=== PATIENT | female | born 1985 | race Two or more races ===

== ENCOUNTER 2016-03-28 22:06 | Observation (INO) | payer OTHER ==
[2015-10-05 11:11] VITALS: BP 99/62
[~2016-03-28 22:06] MED LIST: PREN1TAB27 PO; PROC10VI PO
[2016-03-28] MEDS ORDERED: IV RINGERS,LACTATED 1000ML 1,000 ML IV SCH (22:30)
[2016-03-28 23:54] LABS: BILIRUBIN,URINE NEGATIVE (NEG); GLUCOSE,URINE NEGATIVE (NEG); NITRITE,URINE NEGATIVE (NEG); PROTEIN,URINE NEGATIVE (NEG-TRACE); UROBILINOGEN,URINE 0.2 mg/dL (0.2 mg/dL)
[2016-03-29 00:08] LABS: BACTERIA,URINE FEW /HPF (0-FEW); RBC,URINE OCC /HPF (0-2); SQUAMOUS EPITHELIAL CELL,UR FEW /LPF; WBC,URINE OCC /HPF (0-4)
== END 2016-03-29 00:37 | disposition home or self-care (01) ==
LOC: 3 SO LND 22:06
PROVIDERS: ADMIT Obstetrics & Gynecology; ATTEND Obstetrics & Gynecology
DX: O62.9 Abnormality of forces of labor, unspecified (principal); O26.893 Other specified pregnancy related conditions, third trimester; N89.8 Other specified noninflammatory disorders of vagina; Z3A.38 38 weeks gestation of pregnancy
CPT/HCPCS: 81001; G0378; G0379

== ENCOUNTER 2016-04-02 03:35 | Inpatient (IN) | payer OTHER ==
[~2016-04-02] VITALS: Ht 162.6 cm; Wt 71.2 kg
[2016-04-02] MEDS ORDERED: IV RINGERS,LACTATED 1000ML 1,000 ML IV SCH (03:57)
[2016-04-02] MEDS ORDERED: ONDANSETRON PF 4 MG/2 ML VIAL. IV PRN (04:00)
[2016-04-02] MEDS ORDERED: 0.9 % SODIUM CHLORIDE 10 ML DISP.SYRIN. IV PRN ×2 (04:00→06:15)
[2016-04-02] MEDS ORDERED: LIDOCAINE 1% PF 30 ML VIAL. INJ PRN (04:00)
[2016-04-02] MEDS ORDERED: TERBUTALINE 1 MG/ML VIAL. SQ PRN (04:00)
[2016-04-02] MEDS ORDERED: IBUPROFEN 600 MG TABLET. PO PRN (04:00)
[2016-04-02] MEDS ORDERED: OXYTOCIN 30 UNIT/500 ML PREMIX 500 ML IV PRN ×2 (04:00→06:15)
[2016-04-02] MEDS ORDERED: FENTANYL PF 100 MCG/2 ML VIAL. IV PRN (04:00)
[2016-04-02 04:12] VITALS: BP 112/74
--- NOTE | 2016-04-02 04:23 | PDOC1 ---
OB - History Hx of Present Care: Good Care Ultrasounds: Normal mid trimester US Obstetrical Complications: None Medical Complications: None Past Family/Social History * Past Medical, Surgical, Family and Obstetric Histories reviewed from chart. Rubella: Immune RPR/VDRL: Negative GBS Status: Negative HBsAG: Negative OB - Chief Complaint & HPI Date of Admission: Date of Admission: Apr 02, 2016 at 03:35 Chief Complaint/History : 3 Para: 1 EGA: 38 Reason for admission: active labor, rupture of membranes Admission Nurse Assessment Rev: Yes Problems: OB - Admission Exam Physical Exam Vitals: VS - Last 72 Hours, by Label Date Time Temp Pulse Resp B/P Pulse Ox O2 Delivery O2 Flow Rate FiO2 04/02/16 04:12 98.6 98 20 112/74 Room Air 98.6 HEENT: Normal Heart: Regular Rate Lungs: Clear, Equal Abdomen: Gravid, Non tender, Soft Extremities: Edema Reflexes: Normal Cervical Dilatation: 8cm Effacement: 100% Station: 0 Membranes: Ruptured Amniotic Fluid: Thin Meconium Heart Rate: Normal Accelerations: Accelerations Present Decelerations: No decelerations Short Term Variability: Present Contractions on Admission: < 5 Minutes Apart Intensity: Firm Text A: 38 wks IUP SROM P: Admit for labor management. MARLEY ASCENCIO Jr, MD Apr 02, 2016 04:22
[2016-04-02 04:40] LABS: HEMOGLOBIN 12.6 g/dL (12.0-15.5); RED BLOOD COUNT 4.5 x10^6/uL (3.50-5.40); WHITE BLOOD COUNT 10.1 x10^3/uL (4.0-11.0)
--- NOTE | 2016-04-02 06:06 | PDOC ---
VAGINAL DELIVERY DATE DATE: 04/02/16 TIME: 06:04 : 3 Para: 2 EGA: 38 VAGINAL DELIVERY: VTX VACCUM ASSISTED: No PLACENTA: Spontaneous 7/9 SEX: Male WEIGHT Weight [pending ] Nuchal Cord: No Amniotic Fluid: Thin Meconium PAIN: Natural EPISIOTOMY: No EXTENSION: No EBL 400 ml COMPLICATIONS none CONDITION pt. stable Signs of Intrauterine Infectio: None Shoulder Dystocia: No Problems: MARLEY ASCENCIO Jr, MD Apr 02, 2016 06:06
[2016-04-02] MEDS ORDERED: MAG HYDROX/ALUMINUM HYDROX/SMC 30 ML ORAL.SUSP PO PRN (06:15)
[2016-04-02] MEDS ORDERED: MAGNESIUM HYDROXIDE 2,400 MG/30 ML ORAL.SUSP. PO PRN (06:15)
[2016-04-02] MEDS ORDERED: IBUPROFEN 800 MG TABLET. PO PRN (06:15)
[2016-04-02] MEDS ORDERED: PHENYLEPH/MINERAL OIL/PETROLAT RECTAL OINTMENT 28GM TUBE. RC PRN (06:15)
[2016-04-02] MEDS ORDERED: OXYCODONE/APAP 5/325 TABLET. PO PRN (06:15)
[2016-04-02] MEDS ORDERED: DOCUSATE SODIUM 100 MG CAPSULE PO PRN (06:15)
[2016-04-02] MEDS ORDERED: DIPHENHYDRAMINE HCL 25 MG CAPSULE PO PRN (06:15)
[2016-04-02] MEDS ORDERED: BENZOCAINE 20% TOPICAL AEROSOL SPRAY 57GM CAN. TP PRN (06:15)
[2016-04-02] MEDS ORDERED: ACETAMINOPHEN 325 MG TABLET. PO PRN (06:15)
[2016-04-02] MEDS ORDERED: SIMETHICONE 80 MG TAB.CHEW PO PRN (06:15)
[2016-04-02] MEDS ORDERED: HYDROCORTISONE 1% TOPICAL OINTMENT 30GM TUBE. TP PRN (06:15)
[2016-04-02] MEDS ORDERED: MMR per PROTOCOL. MC PRN (06:15)
[2016-04-02] MEDS ORDERED: ZOLPIDEM 5 MG TABLET. PO PRN (06:15)
[2016-04-02 09:15] VITALS: BP 112/74
[2016-04-02 14:00] VITALS: BP 121/74
[2016-04-03] MEDS ORDERED: FERROUS SULFATE 325 MG TABLET PO SCH (08:00)
== END 2016-04-02 14:04 | disposition home or self-care (01) | DRG 775 ==
LOC: OBSVTOIN 03:35 → 3 SO LND 03:35 → 3 NORTH 09:38
PROVIDERS: ADMIT Obstetrics & Gynecology; ATTEND Obstetrics & Gynecology
PROC: 10E0XZZ Delivery of Products of Conception, External Approach (ICD-10-PCS; principal; 2016-04-02)
DX: O77.0 Labor and delivery complicated by meconium in amniotic fluid (principal); Z3A.38 38 weeks gestation of pregnancy; Z37.0 Single live birth
CPT/HCPCS: 36415; 85027; 86593; 86850; 86900; 86901; G0378; J2590; J3010; J7120

== ENCOUNTER 2016-06-21 10:37 | Emergency (ER) | payer OTHER ==
[~2016-06-21] VITALS: Ht 162.6 cm; Wt 60.8 kg
[2016-06-21 11:58] LABS: BASO % 0 % (0-3); EOS % 0 % (0-3); HEMATOCRIT 38.8 % (36.0-47.0); HEMOGLOBIN 12.7 g/dL (12.0-15.5); LYMPH # 1.2 x10^3/uL (1.0-4.8); LYMPH % 15 % (24-48); MEAN CORPUSCULAR HEMOGLOBIN 28 pg (25-35); MEAN CORPUSCULAR HGB CONC 33 g/dL (31-37); MEAN CORPUSCULAR VOLUME 87 fL (79-100); MONO % 5 % (0-9); NEUT % 81 % (31-73); PLATELET COUNT 170 x10^3/uL (140-400); RED BLOOD COUNT 4.48 x10^6/uL (3.50-5.40); RED CELL DISTRIBUTION WIDTH 15.1 % (11.5-14.5); WHITE BLOOD COUNT 7.9 x10^3/uL (4.0-11.0)
[2016-06-21] MEDS ORDERED: MORPHINE SULFATE 10 MG/ML VIAL. IV ONE (12:00)
[2016-06-21] MEDS ORDERED: ONDANSETRON PF 4 MG/2 ML VIAL. IV ONE (12:00)
[2016-06-21] MEDS ORDERED: IV NORMAL SALINE 1000ML BAG 1,000 ML IV ONE (12:00)
[2016-06-21 12:07] LABS: BILIRUBIN,URINE NEGATIVE (NEG); GLUCOSE,URINE NEGATIVE (NEG); NITRITE,URINE NEGATIVE (NEG); PROTEIN,URINE NEGATIVE (NEG-TRACE); UROBILINOGEN,URINE 0.2 mg/dL (0.2 mg/dL)
[2016-06-21 12:14] LABS: BACTERIA,URINE FEW /HPF (0-FEW); SQUAMOUS EPITHELIAL CELL,UR MOD /LPF; WBC,URINE 0 /HPF (0-4)
[2016-06-21 12:14] LABS: ALBUMIN 3.5 g/dL (3.4-5.0); ALBUMIN/GLOBULIN RATIO 0.8 (1.0-1.7); CALCIUM 8.9 mg/dL (8.5-10.1); CREATININE 0.9 mg/dL (0.6-1.0); GFR 73.5; POTASSIUM 3.2 mmol/L (3.5-5.1); TOTAL BILIRUBIN 0.2 mg/dL (0.2-1.0); TOTAL PROTEIN 7.7 g/dL (6.4-8.2)
[2016-06-21] MEDS ORDERED: IOHEXOL 300 MG/ML 75 ML VIAL IV ONE (12:30)
[2016-06-21] MEDS ORDERED: CONTRAST GIVEN MC PRN (12:45)
--- NOTE | 2016-06-21 14:02 | RAD ---
CT of the abdomen and pelvis with contrast, 06/21/2016: History: Nausea, vomiting, diarrhea, right abdominal pain. Multidetector CT imaging was performed following an IV bolus injection of iodinated contrast material. No oral contrast material was administered for this study. There is a tiny radiopacity present along the posterior wall of the gallbladder raising the possibility of a calculus. No inflammatory changes related to the gallbladder are seen. The liver is unremarkable. No pancreatic abnormality is detected. The spleen is of normal size. No renal abnormality is detected. The aorta is unremarkable. No abdominal or pelvic adenopathy is seen. The uterus is deviated to the left of midline. No uterine abnormality is seen. The bladder is unremarkable. The bowel loops are not dilated. Portions of the colon demonstrate mild mural thickening. Incomplete distention may be contributing to this appearance. The appendix is not clearly visualized. No dilated appendix or pericecal inflammatory process is seen. No free fluid or free air is evident in the abdomen or pelvis. IMPRESSION: 1. Mild colonic mural thickening suggesting nonspecific colitis. 2. Possible cholelithiasis. 3. The abdomen and pelvis are otherwise unremarkable. PQRS Compliance Statement: One or more of the following individualized dose reduction techniques were utilized for this examination: 1. Automated exposure control 2. Adjustment of the mA and/or kV according to patient size 3. Use of iterative reconstruction technique
[2016-06-21] MEDS ORDERED: PROM25TA10 PO (14:57)
[2016-06-21] MEDS ORDERED: DICY20TA3 PO (14:57)
[2016-06-21] MEDS ORDERED: DIPH1TAB PO (14:57)
--- NOTE | 2016-06-21 14:57 | PHYS DOC ---
Past Medical History Past Medical History: No Pertinent History Past Surgical History: No Surgical History Alcohol Use: None Drug Use: None Adult General Chief Complaint Chief Complaint: ABDOMINAL PAIN HPI HPI Patient is a 30 year old female who presents today with right lower quadrant abdominal pain nausea vomiting and diarrhea that began 2 days ago. Patient's also complaining of subjective fevers. Review of Systems Review of Systems Constitutional: Denies fever or chills [] Eyes: Denies change in visual acuity, redness, or eye pain [] HENT: Denies nasal congestion or sore throat [] Respiratory: Denies cough or shortness of breath [] Cardiovascular: No additional information not addressed in HPI [] GI: Right lower quadrant abdominal pain, nausea vomiting and diarrhea : Denies dysuria or hematuria [] Musculoskeletal: Denies back pain or joint pain [] Integument: Denies rash or skin lesions [] Neurologic: Denies headache, focal weakness or sensory changes [] Endocrine: Denies polyuria or polydipsia [] Current Medications Current Medications Current Medications Medications (Trade) Dose Ordered Sig/Eladio Start Time Stop Time Status Last Admin Dose Admin Info (Do NOT chart on this entry -- for MONITORING) 1 each PRN DAILY PRN 06/21/16 12:45 06/23/16 12:44 Iohexol (Omnipaque 300 Mg/ml) 75 ml 1X ONCE 06/21/16 12:30 06/21/16 12:31 DC 06/21/16 13:28 75 ML Morphine Sulfate 5 mg 1X ONCE 06/21/16 12:00 06/21/16 12:01 DC 06/21/16 12:18 5 MG Ondansetron HCl (Zofran) 4 mg 1X ONCE 06/21/16 12:00 06/21/16 12:01 DC 06/21/16 12:16 4 MG Sodium Chloride 1,000 ml @ 1,000 mls/hr 1X ONCE 06/21/16 12:00 06/21/16 12:59 DC 06/21/16 12:16 1,000 MLS/HR Allergies Allergies Allergies Coded Allergies Type Severity Reaction Last Updated Verified No Known Drug Allergies 11/22/14 No Physical Exam Physical Exam Constitutional: Well developed, well nourished, no acute distress, non-toxic appearance. [] HENT: Normocephalic, atraumatic, bilateral external ears normal, oropharynx moist, no oral exudates, nose normal. [] Eyes: PERRLA, EOMI, conjunctiva normal, no discharge. [] Neck: Normal range of motion, no tenderness, supple, no stridor. [] Cardiovascular:Heart rate regular rhythm, no murmur [] Lungs & Thorax: Bilateral breath sounds clear to auscultation [] Abdomen: Flat abdomen. Bowel sounds normal, soft, mild right LQ tenderness no RUQ tenderness,negative psoas sign, negative obturator sign, no masses, no pulsatile masses. [] Skin: Warm, dry, no erythema, no rash. [] Back: No tenderness, no CVA tenderness. [] Extremities: No tenderness, no cyanosis, no clubbing, ROM intact, no edema. [] Neurologic: Alert and oriented X 3, normal motor function, normal sensory function, no focal deficits noted. [] Psychologic: Affect normal, judgement normal, mood normal. [] Current Patient Data Vital Signs Vital Signs Date Time Temp Pulse Resp B/P (MAP) Pulse Ox O2 Delivery O2 Flow Rate FiO2 06/21/16 15:05 84 105/64 (78) 97 Room Air 06/21/16 12:48 15 06/21/16 10:59 99.0 99.0 Lab Values Laboratory Tests Test 06/21/16 11:04 06/21/16 11:15 White Blood Count 7.9 x10^3/uL (4.0-11.0) Red Blood Count 4.48 x10^6/uL (3.50-5.40) Hemoglobin 12.7 g/dL (12.0-15.5) Hematocrit 38.8 % (36.0-47.0) Mean Corpuscular Volume 87 fL (79-100) Mean Corpuscular Hemoglobin 28 pg (25-35) Mean Corpuscular Hemoglobin Concent 33 g/dL (31-37) Red Cell Distribution Width 15.1 % (11.5-14.5) H Platelet Count 170 x10^3/uL (140-400) Neutrophils (%) (Auto) 81 % (31-73) H Lymphocytes (%) (Auto) 15 % (24-48) L Monocytes (%) (Auto) 5 % (0-9) Eosinophils (%) (Auto) 0 % (0-3) Basophils (%) (Auto) 0 % (0-3) Neutrophils # (Auto) 6.3 x10^3uL (1.8-7.7) Lymphocytes # (Auto) 1.2 x10^3/uL (1.0-4.8) Monocytes # (Auto) 0.4 x10^3/uL (0.0-1.1) Eosinophils # (Auto) 0.0 x10^3/uL (0.0-0.7) Basophils # (Auto) 0.0 x10^3/uL (0.0-0.2) Sodium Level 138 mmol/L (136-145) Potassium Level 3.2 mmol/L (3.5-5.1) L Chloride Level 104 mmol/L (98-107) Carbon Dioxide Level 25 mmol/L (21-32) Anion Gap 9 (6-14) Blood Urea Nitrogen 8 mg/dL (7-20) Creatinine 0.9 mg/dL (0.6-1.0) Estimated GFR (Cockcroft-Gault) 73.5 BUN/Creatinine Ratio 9 (6-20) Glucose Level 97 mg/dL (70-99) Calcium Level 8.9 mg/dL (8.5-10.1) Total Bilirubin 0.2 mg/dL (0.2-1.0) Aspartate Amino Transferase (AST) 19 U/L (15-37) Alanine Aminotransferase (ALT) 16 U/L (14-59) Alkaline Phosphatase 54 U/L (46-116) Total Protein 7.7 g/dL (6.4-8.2) Albumin 3.5 g/dL (3.4-5.0) Albumin/Globulin Ratio 0.8 (1.0-1.7) L Lipase 152 U/L (73-393) Urine Collection Type Unknown Urine Color Yellow Urine Clarity Clear Urine pH 6.0 Urine Specific Sharon 1.020 Urine Protein Negative mg/dL (NEG-TRACE) Urine Glucose (UA) Negative mg/dL (NEG) Urine Ketones (Stick) Negative mg/dL (NEG) Urine Blood Small (NEG) Urine Nitrite Negative (NEG) Urine Bilirubin Negative (NEG) Urine Urobilinogen Dipstick 0.2 mg/dL (0.2 mg/dL) Urine Leukocyte Esterase Negative (NEG) Urine RBC 11-20 /HPF (0-2) Urine WBC 0 /HPF (0-4) Urine Squamous Epithelial Cells Mod /LPF Urine Bacteria Few /HPF (0-FEW) Urine Mucus Mod /LPF Laboratory Tests 06/21/16 11:04 Laboratory Tests 06/21/16 11:04 EKG EKG [] Radiology/Procedures Radiology/Procedures []PROCEDURE: CT ABD PELV W/ IV CONTRST ONLY CT of the abdomen and pelvis with contrast, 06/21/2016: History: Nausea, vomiting, diarrhea, right abdominal pain. Multidetector CT imaging was performed following an IV bolus injection of iodinated contrast material. No oral contrast material was administered for this study. There is a tiny radiopacity present along the posterior wall of the gallbladder raising the possibility of a calculus. No inflammatory changes related to the gallbladder are seen. The liver is unremarkable. No pancreatic abnormality is detected. The spleen is of normal size. No renal abnormality is detected. The aorta is unremarkable. No abdominal or pelvic adenopathy is seen. The uterus is deviated to the left of midline. No uterine abnormality is seen. The bladder is unremarkable. The bowel loops are not dilated. Portions of the colon demonstrate mild mural thickening. Incomplete distention may be contributing to this appearance. The appendix is not clearly visualized. No dilated appendix or pericecal inflammatory process is seen. No free fluid or free air is evident in the abdomen or pelvis. IMPRESSION: 1. Mild colonic mural thickening suggesting nonspecific colitis. 2. Possible cholelithiasis. 3. The abdomen and pelvis are otherwise unremarkable. PQRS Compliance Statement: One or more of the following individualized dose reduction techniques were utilized for this examination: 1. Automated exposure control 2. Adjustment of the mA and/or kV according to patient size 3. Use of iterative reconstruction technique DICTATED and SIGNED BY: PATRICIA PERRY MD DATE: 06/21/16 1350 CC: LORI COURTNEY APRN; NO PCP; NON,STAFF ~ Course & Med Decision Making Course & Med Decision Making Pertinent Labs and Imaging studies reviewed. (See chart for details) Patient presents today with nausea vomiting and diarrhea that began 2 days ago. No hematemesis or melena. Labs are negative. CT of the abdomen and pelvic shows some colitis. She is in no distress. She was discharged with instructions to follow-up with PCP in one week. She was provided return precautions and discharged in stable condition. Dragon Disclaimer Dragon Disclaimer This electronic medical record was generated, in whole or in part, using a voice recognition dictation system. Departure Departure Impression: Primary Impression: Nausea and vomiting Additional Impressions: Diarrhea Colitis, acute Cholelithiasis Disposition: 01 HOME, SELF-CARE Condition: STABLE Referrals: NO PCP (PCP) Follow-up with your own doctor in one week Patient Instructions: Diarrhea, Nausea and Vomiting, [id number] Additional Instructions: You were seen for nausea vomiting and diarrhea. This is probably a viral illness. Your work up is negative in the emergency room. Follow-up with your own doctor in the next 7 days. Push fluids and maintain good hand hygiene at home. Scripts Dicyclomine Hcl (DICYCLOMINE HCL) 20 Mg Tablet 1 TAB PO TID, #30 TAB 1 Refill Prov: LORI COURTNEY APRN 06/21/16 Diphenoxylate Hcl/Atropine (LOMOTIL TABLET) 1 Each Tablet 1 TAB PO TID, #30 TAB Prov: LORI COURTNEY APRN 06/21/16 Promethazine Hcl (PROMETHAZINE HCL) 25 Mg Tablet 1 TAB PO PRN Q6HRS, #20 TAB Prov: LORI COURTNEY APRN 06/21/16 Problem Qualifiers Primary Impression: Nausea and vomiting Vomiting type: unspecified Vomiting Intractability: non-intractable Qualified Codes: R11.2 - Nausea with vomiting, unspecified Additional Impressions: Diarrhea Diarrhea type: unspecified type Qualified Codes: R19.7 - Diarrhea, unspecified Cholelithiasis Cholelithiasis location: gallbladder Cholecystitis presence: without cholecystitis Biliary obstruction: without biliary obstruction Qualified Codes: K80.20 - Calculus of gallbladder without cholecystitis without obstruction LORI COURTNEY APRN June 21, 2016 14:57
[2016-06-21 15:05] VITALS: BP 105/64
== END 2016-06-21 15:13 | disposition home or self-care (01) ==
LOC: ER 10:37
DX: K80.20 Calculus of gallbladder without cholecystitis without obstruction (principal); K52.9 Noninfective gastroenteritis and colitis, unspecified; R19.7 Diarrhea, unspecified
CPT/HCPCS: 36415; 74177; 80053; 81001; 81025; 83690; 85027; 96361; 96374; 96375; 99285; J2270; J2405; J7030; Q9967

== ENCOUNTER → 2017-10-28 | Outpatient (CLI) | payer OTHER ==
[~2017-10-28] MED LIST changes: +DICY20TA3 PO; +DIPH1TAB PO; +PROM25TA10 PO
--- NOTE | 2017-10-28 14:23 | RAD ---
Obstetrical ultrasound, 10/28/2017: HISTORY: Vaginal bleeding, Transabdominal and transvaginal scans were obtained. The uterus contains a fluid collection compatible with a gestational sac. It demonstrates a mean diameter of 1.9 cm compatible with a gestational age of nearly 7 weeks. There is a 3 mm echogenic structure along the wall of the presumed gestational sac which may represent a pole. No cardiac activity is seen. The findings raise questions as to the viability of this , however, they are not considered diagnostic of that finding at this early stage. No subchorionic hemorrhage is seen. The right ovary contains a 2.2 cm simple cyst. The left ovary is unremarkable. There is blood flow in both ovaries. No free fluid is evident in the pelvis. IMPRESSION: 1. Early intrauterine as described above with features raising questions as to its viability. Serial hCG titers and sonographic follow-up is suggested. 2. Small right ovarian cyst. Electronically signed by: Shayne Porter MD (10/28/2017 2:20 PM) [facility]
== END | disposition home or self-care (01) ==
LOC: US 09:44
PROVIDERS: ATTEND Obstetrics & Gynecology
DX: O00.91 Unspecified ectopic pregnancy with intrauterine pregnancy (principal); O34.81 Maternal care for other abnormalities of pelvic organs, first trimester; N83.201 Unspecified ovarian cyst, right side; O46.91 Antepartum hemorrhage, unspecified, first trimester; Z3A.01 Less than 8 weeks gestation of pregnancy
CPT/HCPCS: 76801; 76817

== ENCOUNTER 2017-11-01 06:36 | Emergency (ER) | payer OTHER ==
[~2017-11-01] VITALS: Ht 162.6 cm; Wt 60.3 kg
[2017-11-01 06:41] VITALS: BP 106/55
[2017-11-01] MEDS ORDERED: ONDANSETRON PF 4 MG/2 ML VIAL. IV ONE (07:00)
[2017-11-01] MEDS ORDERED: IV NORMAL SALINE 1000ML BAG 1,000 ML IV ONE (07:00)
[2017-11-01] MEDS ORDERED: MORPHINE SULFATE 4 MG/ML VIAL. IV ONE (07:00)
--- NOTE | 2017-11-01 07:14 | PHYS DOC ---
Past Medical History Past Medical History: Other Additional Past Medical Histor: Miscarriage Past Surgical History: No Surgical History Alcohol Use: None Drug Use: None Adult General Chief Complaint Chief Complaint: VAGINAL BLEEDING [facility] HPI Patient is a 32 year old female who presents with complaining of vaginal bleeding during . Patient is A1 with LMP of August 06 at 9 weeks of gestation complaining of vaginal spotting for one week. Patient states she was seen by her GLASS BEAD MAKER 4 days ago and had intrauterine without heart activity. Patient complaining of increasing vaginal bleeding and lower abdominal cramping since this morning and states she passed the fetus with lots of blood clots. Patient rated her pain 10 over 10 and complaining of nausea without dizziness, palpitation, vomiting. Patient states she thinks she has positive blood type. Review of Systems Review of Systems Constitutional: Denies fever or chills [] Eyes: Denies change in visual acuity, redness, or eye pain [] HENT: Denies nasal congestion or sore throat [] Respiratory: Denies cough or shortness of breath [] Cardiovascular: No additional information not addressed in HPI [] GI: Reports abdominal pain, nausea, denies vomiting, bloody stools or diarrhea [ ] : Denies dysuria or hematuria, reports vaginal bleeding Musculoskeletal: Denies back pain or joint pain [] Integument: Denies rash or skin lesions [] Neurologic: Denies headache, focal weakness or sensory changes [] Endocrine: Denies polyuria or polydipsia [] All other systems were reviewed and found to be within normal limits, except as documented in this note. Current Medications Current Medications Current Medications Medications (Trade) Dose Ordered Sig/[facility] Start Time Stop Time Status Last Admin Dose Admin Morphine Sulfate (Morphine Sulfate) 4 mg 1X ONCE 11/01/17 07:00 11/01/17 07:16 DC 11/01/17 08:12 4 MG Ondansetron HCl (Zofran) 4 mg 1X ONCE 11/01/17 07:00 11/01/17 07:16 DC 11/01/17 08:09 4 MG Sodium Chloride 1,000 ml @ 1,000 mls/hr 1X ONCE 11/01/17 07:00 11/01/17 07:59 DC 11/01/17 08:13 1,000 MLS/HR Allergies Allergies Allergies Coded Allergies Type Severity Reaction Last Updated Verified ibuprofen Allergy Intermediate Rash 11/01/17 Yes Physical Exam Physical Exam Constitutional: Well developed, well nourished, moderate distress, non-toxic appearance. [] HENT: Normocephalic, atraumatic, oropharynx moist. [] Eyes: PERRLA, EOMI, conjunctiva normal, no discharge. [] Neck: Normal range of motion, no tenderness, supple, no stridor. [] Cardiovascular:Heart rate regular rhythm, no murmur [] Lungs & Thorax: Bilateral breath sounds clear to auscultation [] Abdomen: Bowel sounds normal, soft, suprapubic guarding, no masses, no pulsatile masses. Vaginal exam with present of dispensary clerk showed mild vaginal bleeding with open cervix with gestational sac inside the cervix , unable to remove the sac Skin: Warm, dry, no erythema, no rash. [] Back: No tenderness, no CVA tenderness. [] Extremities: No tenderness, no cyanosis, no clubbing, ROM intact, no edema. [] Neurologic: Alert and oriented X 3, normal motor function, normal sensory function, no focal deficits noted. [] Psychologic: Affect normal, judgement normal, mood normal. [] Current Patient Data Vital Signs Vital Signs Date Time Temp Pulse Resp B/P (MAP) Pulse Ox O2 Delivery O2 Flow Rate FiO2 11/01/17 08:12 16 11/01/17 06:41 97.8 71 106/55 (72) 100 Room Air 97.8 Lab Values Laboratory Tests Test 11/01/17 06:41 White Blood Count 7.8 x10^3/uL (4.0-11.0) Red Blood Count 4.26 x10^6/uL (3.50-5.40) Hemoglobin 13.3 g/dL (12.0-15.5) Hematocrit 38.0 % (36.0-47.0) Mean Corpuscular Volume 89 fL (79-100) Mean Corpuscular Hemoglobin 31 pg (25-35) Mean Corpuscular Hemoglobin Concent 35 g/dL (31-37) Red Cell Distribution Width 13.2 % (11.5-14.5) Platelet Count 172 x10^3/uL (140-400) Neutrophils (%) (Auto) 75 % (31-73) H Lymphocytes (%) (Auto) 18 % (24-48) L Monocytes (%) (Auto) 4 % (0-9) Eosinophils (%) (Auto) 3 % (0-3) Basophils (%) (Auto) 1 % (0-3) Neutrophils # (Auto) 5.8 x10^3uL (1.8-7.7) Lymphocytes # (Auto) 1.4 x10^3/uL (1.0-4.8) Monocytes # (Auto) 0.3 x10^3/uL (0.0-1.1) Eosinophils # (Auto) 0.2 x10^3/uL (0.0-0.7) Basophils # (Auto) 0.1 x10^3/uL (0.0-0.2) Maternal Serum HCG Beta Subunit 4588 mIU/mL (0-5) H Sodium Level 144 mmol/L (136-145) Potassium Level 3.6 mmol/L (3.5-5.1) Chloride Level 108 mmol/L (98-107) H Carbon Dioxide Level 25 mmol/L (21-32) Anion Gap 11 (6-14) Blood Urea Nitrogen 8 mg/dL (7-20) Creatinine 0.6 mg/dL (0.6-1.0) Estimated GFR (Cockcroft-Gault) 115.9 BUN/Creatinine Ratio 13 (6-20) Glucose Level 103 mg/dL (70-99) H Calcium Level 9.2 mg/dL (8.5-10.1) Total Bilirubin 0.4 mg/dL (0.2-1.0) Aspartate Amino Transferase (AST) 16 U/L (15-37) Alanine Aminotransferase (ALT) 17 U/L (14-59) Alkaline Phosphatase 50 U/L (46-116) Total Protein 7.8 g/dL (6.4-8.2) Albumin 4.0 g/dL (3.4-5.0) Albumin/Globulin Ratio 1.1 (1.0-1.7) Laboratory Tests 11/01/17 06:41 Laboratory Tests 11/01/17 06:41 EKG EKG [] Radiology/Procedures Radiology/Procedures [facility] [address] [place] [address] IMAGING REPORT Signed PATIENT: SERENE WAYNEZ ACCOUNT: [id number] : 1985 LOCATION: ER AGE: 32 SEX: F EXAM STATUS: REG ER ORD. PHYSICIAN: BARBY VICTOR MD REASON: 12 weeks , vaginal bleeding PROCEDURE: OB <14 WKS W/TV Obstetrical ultrasound, 11/01/2017: HISTORY: Vaginal bleeding, 12 weeks Transabdominal and transvaginal scans were obtained. The central uterine echo complex is thickened. There is a fluid collection in the lower uterine segment extending into the cervix measuring 2.3 cm in mean diameter. It is elongated. No yolk sac or pole is seen within this structure. This probably represents an abnormal gestational sac related to a nonviable in the process of being spontaneously aborted. No viable intrauterine gestation is identified. There is a 2 cm simple cyst in the right ovary. The left ovary is unremarkable. The adnexal regions are otherwise unremarkable. A trace amount of free fluid is noted in the cul-de-sac. IMPRESSION: 1. Small fluid collection in the lower uterine segment extending into the cervix most likely representing an abnormal gestational sac related to a nonviable . Correlation with hCG titers is suggested. 2. Small right ovarian cyst. Electronically signed by: Shayne Perry MD (11/01/2017 8:23 AM) [facility] DICTATED and SIGNED BY: SHAYNE PERRY MD DATE: 11/01/17 08 Course & Med Decision Making Course & Med Decision Making Pertinent Labs and Imaging studies reviewed. (See chart for details) Evaluation of patient in ER showed 32-year-old female patient at 8-9 weeks of gestation presented with increasing vaginal bleeding and passing clots and possible fetus. Patient treated with IV fluid, Zofran and morphine and felt better. Patient did not have tachycardia or hypotension. Vaginal exam after obtaining ultrasound showed gestational sac in cervix. Dr. Rice pet adoption counselor GLASS BEAD MAKER was informed at 0908 and agreed with plan of discharging patient home and follow up with her GLASS BEAD MAKER. Patient had blood type of O+. Patient has appointment with her GLASS BEAD MAKER in 3 days and instructed to return to ER if increasing bleeding or having severe abdominal pain or dizziness and palpitation. Dragon Disclaimer Dragon Disclaimer This electronic medical record was generated, in whole or in part, using a voice recognition dictation system. Departure Departure Impression: Primary Impression: Incomplete Disposition: HOME, SELF-CARE (at 0908) Condition: IMPROVED Referrals: MARLEY ASCENCIO Jr, MD Patient Instructions: Incomplete Miscarriage Additional Instructions: Drink plenty of liquids Follow-up with your GLASS BEAD MAKER in 2 days Return to ER if not getting better Scripts Hydrocodone/Apap 5-325 (NORCO 5-325 TABLET) 1 Each Tablet 1 TAB PO Q4-6HRS, #10 TAB Prov: BARBY VICTOR MD 11/01/17 BARBY VICTOR MD Nov 01, 2017 07:14
[2017-11-01 07:29] LABS: BASO # 0.1 x10^3/uL (0.0-0.2); BASO % 1 % (0-3); EOS # 0.2 x10^3/uL (0.0-0.7); EOS % 3 % (0-3); HEMOGLOBIN 13.3 g/dL (12.0-15.5); LYMPH # 1.4 x10^3/uL (1.0-4.8); LYMPH % 18 % (24-48); MEAN CORPUSCULAR HEMOGLOBIN 31 pg (25-35); MEAN CORPUSCULAR HGB CONC 35 g/dL (31-37); MEAN CORPUSCULAR VOLUME 89 fL (79-100); MONO # 0.3 x10^3/uL (0.0-1.1); MONO % 4 % (0-9); NEUT # 5.8 x10^3uL (1.8-7.7); NEUT % 75 % (31-73); PLATELET COUNT 172 x10^3/uL (140-400); RED BLOOD COUNT 4.26 x10^6/uL (3.50-5.40); RED CELL DISTRIBUTION WIDTH 13.2 % (11.5-14.5); WHITE BLOOD COUNT 7.8 x10^3/uL (4.0-11.0)
[2017-11-01 07:50] LABS: CALCIUM 9.2 mg/dL (8.5-10.1); CREATININE 0.6 mg/dL (0.6-1.0); GFR 115.9; POTASSIUM 3.6 mmol/L (3.5-5.1)
[2017-11-01 07:52] LABS: ALBUMIN/GLOBULIN RATIO 1.1 (1.0-1.7); TOTAL BILIRUBIN 0.4 mg/dL (0.2-1.0); TOTAL PROTEIN 7.8 g/dL (6.4-8.2)
--- NOTE | 2017-11-01 08:26 | RAD ---
Obstetrical ultrasound, 11/01/2017: HISTORY: Vaginal bleeding, 12 weeks Transabdominal and transvaginal scans were obtained. The central uterine echo complex is thickened. There is a fluid collection in the lower uterine segment extending into the cervix measuring 2.3 cm in mean diameter. It is elongated. No yolk sac or pole is seen within this structure. This probably represents an abnormal gestational sac related to a nonviable in the process of being spontaneously aborted. No viable intrauterine gestation is identified. There is a 2 cm simple cyst in the right ovary. The left ovary is unremarkable. The adnexal regions are otherwise unremarkable. A trace amount of free fluid is noted in the cul-de-sac. IMPRESSION: 1. Small fluid collection in the lower uterine segment extending into the cervix most likely representing an abnormal gestational sac related to a nonviable . Correlation with hCG titers is suggested. 2. Small right ovarian cyst. Electronically signed by: Shayne Porter MD (11/01/2017 8:23 AM) [facility]
[2017-11-01] MEDS ORDERED: HYDR-971 PO (09:11)
== END 2017-11-01 09:38 | disposition home or self-care (01) ==
LOC: ER 06:36 → EDBD 06:36 → MERGE 06:36 → ER 09:38
DX: O03.4 Incomplete spontaneous abortion without complication (principal); Z88.8 Allergy status to other drugs, medicaments and biological substances
CPT/HCPCS: 36415; 76801; 76817; 80053; 84702; 85025; 86900; 86901; 96361; 96374; 96375; 99285; J2270; J2405; J7030

== ENCOUNTER → 2018-12-28 | Outpatient (CLI) | payer OTHER ==
[~2018-12-28] MED LIST changes: +HYDR-3164 PO
--- NOTE | 2019-01-01 08:45 | RAD ---
PREG MORE THAN OR EQ TO 14 WKS History: Uterine size date discrepancy Comparison: There is no previous relevant exam available Findings: Multiple transabdominal sonographic images of pelvis are submitted. Cervix measured 5.6 cm. There is a single intrauterine fetus. There is demonstrable cardiac activity 145 bpm. Images of the four-chamber heart are not considered diagnostic due to motion artifact and obliquity. Ventricular outflow tracts are also poorly demonstrated. 2 kidneys are believed to be visualized. There is visualization of stomach. bladder was visualized. There is no obvious demonstrable abnormality of the visualized spine. There is posterior placenta. Reportedly there is believed to be a three-vessel cord although poorly demonstrated. There is breech presentation. Subjectively amniotic fluid volume is within normal limits. Estimated MICAH is 10.6 cm. Maternal adnexal regions are not demonstrated. Biometry data are as follows: Biparietal diameter 4.05 cm corresponds 18 weeks 2 days Head circumference 14.91 cm corresponds 18 weeks 0 days Abdominal circumference 12.93 cm corresponds 18 weeks 3 days Femur length 2.73 cm corresponds 18 weeks 2 days Estimated weight 237 g +/- 35 g Adjusted ultrasound age 18 weeks 2 days with estimated delivery date of 05/29/2019 LMP age 18 weeks 1 day with estimated delivery date of 05/30/2019. Impression: 1. There is a single viable intrauterine fetus in breech presentation. Adjusted ultrasound age is 18 weeks 2 days with estimated delivery date of 05/29/2019. Submitted images of the heart are all considered diagnostic. Electronically signed by: Akira Carlin MD (01/01/2019 8:41 AM) [id number]
== END | disposition home or self-care (01) ==
LOC: US 08:06
PROVIDERS: ATTEND Obstetrics & Gynecology
DX: O26.842 Uterine size-date discrepancy, second trimester (principal); Z3A.18 18 weeks gestation of pregnancy
CPT/HCPCS: 76805

== ENCOUNTER 2019-03-15 10:51 | Emergency (ER) | payer OTHER ==
[~2019-03-15] VITALS: Ht 162.6 cm; Wt 66.0 kg
--- NOTE | 2019-03-15 11:40 | PHYS DOC ---
Past Medical History Past Medical History: Other Additional Past Medical Histor: Miscarriage Past Surgical History: No Surgical History Alcohol Use: None Drug Use: None Adult General Chief Complaint Chief Complaint: LOWER EXTREMITY SWELLING HPI HPI Patient is a 33 year old female with history of newly Sjogren disease and 26 weeks who presents with complaints of left leg pain. Patient states she has had constant left lower extremity pain and numbness and shooting pain in posterior of her leg with mild edema for the last 4 days and her [employer]IDE [employer] to come into to come to ER. Patient denies injury and history of the same problem, shortness of breath, history of DVT and PE. Review of Systems Review of Systems Constitutional: Denies fever or chills [] Eyes: Denies change in visual acuity, redness, or eye pain [] HENT: Denies nasal congestion or sore throat [] Respiratory: Denies cough or shortness of breath [] Cardiovascular: No additional information not addressed in HPI [] GI: Denies abdominal pain, nausea, vomiting, bloody stools or diarrhea [] : Denies dysuria or hematuria [] Musculoskeletal:, Reports back pain, reports joint pain [] Integument: Denies rash or skin lesions [] Neurologic: Denies headache, focal weakness or sensory changes [] Endocrine: Denies polyuria or polydipsia [] All other systems were reviewed and found to be within normal limits, except as documented in this note. Current Medications Current Medications Current Medications Medications (Trade) Dose Ordered Sig/Eladio Start Time Stop Time Status Last Admin Dose Admin Acetaminophen (Tylenol) 1,000 mg 1X ONCE 03/15/19 12:15 03/15/19 12:17 DC 03/15/19 12:44 1,000 MG Allergies Allergies Allergies Coded Allergies Type Severity Reaction Last Updated Verified ibuprofen Allergy Intermediate Rash 11/02/17 Yes Physical Exam Physical Exam Constitutional: Well developed, well nourished, mild distress, non-toxic appearance. [] HENT: Normocephalic, atraumatic. Eyes: PERRLA, EOMI, conjunctiva normal, no discharge. [] Neck: Normal range of motion, no tenderness, supple, no stridor. [] Cardiovascular:Heart rate regular rhythm, no murmur [] Lungs & Thorax: Bilateral breath sounds clear to auscultation [] Abdomen: Bowel sounds normal, soft, no tenderness, no masses, no pulsatile masses, gravid abdomen. [] Skin: Warm, dry, no erythema, no rash. [] Back: No tenderness, no CVA tenderness. [] Extremities: Neurovascular deficit or tenderness or edema, normal range of motion. Neurologic: Alert and oriented X 3, no focal deficits noted. [] Psychologic: Affect normal, judgement normal, mood normal. [] Current Patient Data Vital Signs Vital Signs Date Time Temp Pulse Resp B/P (MAP) Pulse Ox O2 Delivery O2 Flow Rate FiO2 03/15/19 12:59 75 16 108/58 (75) 98 Room Air 03/15/19 11:10 98.5 98.5 Lab Values Laboratory Tests Test 03/15/19 11:02 POC Urine HCG, Qualitative Hcg positive (Negative) EKG EKG [] Radiology/Procedures Radiology/Procedures [facility] [address] [place] [address] IMAGING REPORT Signed PATIENT: WILLIAMS WOODSON EACCOUNT: [id number] : 1985 LOCATION: ER AGE: 33 SEX: F EXAM STATUS: REG ER ORD. PHYSICIAN: BARBY VICTOR MD REASON: 26 weeks , left leg edema PROCEDURE: VENOUS LOWER EXTREMITY LEFT Left lower extremity venous duplex study Clinical History: Lower extremity edema Technique: Using a combination of real time ultrasound imaging and color-flow and pulse Doppler imaging techniques, including spectral analysis, graded compression and augmentation, duplex evaluation of the deep venous system of the left lower extremity was performed. Multiple images were obtained. Findings: There is no sonographic evidence of deep venous thrombosis involving the visualized deep venous structures of the left lower extremity Impression: No evidence of deep venous thrombosis involving the left lower extremity Electronically signed by: Anthony Lopez MD (03/15/2019 11:44 AM) [facility] DICTATED and SIGNED BY: ANTHONY LOPEZ MD DATE: 03/15/19 1144 Course & Med Decision Making Course & Med Decision Making Pertinent Imaging studies reviewed. (See chart for details) discharge: I've spoken with the patient and/or caregivers. I've explained the patient's condition, diagnosis and treatment plan based on information available to me at this time. I've answered the patient's and/or caregivers questions and addressed any concerns. The patient and/or caregivers have a good understanding the patient's diagnosis, condition and treatment plan as can be expected at this point. Vital signs have been stabilized. The patient's condition is stable for discharge from the emergency department. The patient will pursue further outpatient evaluation with her primary care provider or other designated consulting physician as outlined in the discharge instructions. Patient and/or caregivers are agreeable to this plan of care and follow-up instructions have been explained in detail. The patient and/or caregivers have received these instructions in written format and expressed understanding of these discharge instructions. The patient and her caregivers are aware that if any significant change in condition or worsening of symptoms should prompt him to immediately return to this of the closest emergency department. If an emergent department is not readily available I would encourage him to call 911. Julianaon Disclaimer Dragon Disclaimer This electronic medical record was generated, in whole or in part, using a voice recognition dictation system. Departure Departure Impression: Primary Impression: Sciatic leg pain Additional Impression: Currently Disposition: 01 HOME, SELF-CARE (at 1238) Condition: STABLE Referrals: SHAYY BALDERAS (PCP) Patient Instructions: Sciatica Additional Instructions: Drink plenty of liquids Follow-up with your OUTSIDE FOOD SERVER physician in 3-5 days Return to ER if not getting better Apply ice on your back Thank you for visiting [facility]. We appreciate you trusting us with your care. If any additional problems come up don't hesitate to return to visit us. Please follow up with your primary care provider so they can plan additional care if needed and know about the problem that you had. If symptoms worsen come back to the Emergency Department. Any concerning symptoms that start such as chest pain, shortness of air, weakness or numbness on one side of the body, running high fevers or any other concerning symptoms return to the ER. Scripts Hydrocodone/Apap 5-325 (NORCO 5-325 TABLET) 1 Each Tablet 1 TAB PO PRN Q6HRS PRN for PAIN, #14 TAB 0 Refills Prov: BARBY VICTOR MD 03/15/19 Problem Qualifiers Additional Impression: Currently Weeks of gestation: 26 weeks Qualified Codes: Z3A.26 - 26 weeks gestation of BARBY VICTOR MD Mar 15, 2019 11:40
--- NOTE | 2019-03-15 11:46 | RAD ---
Left lower extremity venous duplex study Clinical History: Lower extremity edema Technique: Using a combination of real time ultrasound imaging and color-flow and pulse Doppler imaging techniques, including spectral analysis, graded compression and augmentation, duplex evaluation of the deep venous system of the left lower extremity was performed. Multiple images were obtained. Findings: There is no sonographic evidence of deep venous thrombosis involving the visualized deep venous structures of the left lower extremity Impression: No evidence of deep venous thrombosis involving the left lower extremity Electronically signed by: Anthony Barnes MD (03/15/2019 11:44 AM) [facility]
[2019-03-15] MEDS ORDERED: ACETAMINOPHEN 500 MG TABLET PO ONE (12:15)
[2019-03-15] MEDS ORDERED: HYDR-3164 PO (12:40)
[2019-03-15 12:59] VITALS: BP 108/58
== END 2019-03-15 12:58 | disposition home or self-care (01) ==
LOC: ER 10:51
DX: O99.89 Other specified diseases and conditions complicating pregnancy, childbirth and the puerperium (principal); M54.32 Sciatica, left side; Z88.8 Allergy status to other drugs, medicaments and biological substances
CPT/HCPCS: 81025; 93971; 99284-25

== ENCOUNTER 2019-05-23 18:57 | Inpatient (IN) | payer OTHER ==
[~2019-05-23] VITALS: Ht 162.6 cm; Wt 73.9 kg
[2019-05-23] MEDS ORDERED: LIDOCAINE 1% PF 30 ML VIAL. INJ PRN (19:15)
[2019-05-23] MEDS ORDERED: TERBUTALINE 1 MG/ML VIAL. SQ PRN (19:15)
[2019-05-23] MEDS ORDERED: DINOPROSTONE 10 MG SUPP.VAG VG ONE (19:15)
[2019-05-23] MEDS ORDERED: fentaNYL PF VIAL 100 MCG/2 ML VIAL IVP PRN (19:15)
[2019-05-23] MEDS ORDERED: ONDANSETRON PF 4 MG/2 ML VIAL. IVP PRN (19:15)
[2019-05-23] MEDS ORDERED: BUTORPHANOL 2 MG/ML VIAL. IVP PRN (19:15)
[2019-05-23] MEDS ORDERED: 0.9 % SODIUM CHLORIDE 10 ML DISP.SYRIN. IV PRN (19:15)
[2019-05-23] MEDS ORDERED: IBUPROFEN 400 MG TABLET. PO PRN (19:15)
[2019-05-23] MEDS ORDERED: OXYTOCIN 30 UNIT/500 ML PREMIX 500 ML IV PRN (19:15)
[2019-05-23 19:36] LABS: BILIRUBIN,URINE NEGATIVE (NEG); CLARITY,URINE CLEAR; COLOR,URINE YELLOW; NITRITE,URINE NEGATIVE (NEG); PROTEIN,URINE NEGATIVE (NEG-TRACE); UROBILINOGEN,URINE 0.2 mg/dL (0.2 mg/dL)
[2019-05-23 19:41] LABS: BACTERIA,URINE MODERATE /HPF (0-FEW); RBC,URINE OCC /HPF (0-2); SQUAMOUS EPITHELIAL CELL,UR MOD /LPF
[2019-05-23] MEDS: IV RINGERS,LACTATED 1000ML 1,000 ML IV SCH (19:42)
[2019-05-23 20:16] LABS: BASO % 1 % (0-3); EOS # 0.1 x10^3/uL (0.0-0.7); EOS % 1 % (0-3); HEMATOCRIT 32.1 % (36.0-47.0); HEMOGLOBIN 10.5 g/dL (12.0-15.5); LYMPH # 1.3 x10^3/uL (1.0-4.8); LYMPH % 22 % (24-48); MEAN CORPUSCULAR HEMOGLOBIN 26 pg (25-35); MEAN CORPUSCULAR HGB CONC 33 g/dL (31-37); MEAN CORPUSCULAR VOLUME 80 fL (79-100); MONO # 0.6 x10^3/uL (0.0-1.1); MONO % 10 % (0-9); NEUT # 4.2 x10^3/uL (1.8-7.7); NEUT % 67 % (31-73); PLATELET COUNT 166 x10^3/uL (140-400); RED BLOOD COUNT 4.04 x10^6/uL (3.50-5.40); RED CELL DISTRIBUTION WIDTH 15.1 % (11.5-14.5); WHITE BLOOD COUNT 6.2 x10^3/uL (4.0-11.0)
[2019-05-23 21:08] VITALS: BP 120/72
[2019-05-23] MEDS ORDERED: diphenhydrAMINE HCL 25 MG CAPSULE PO PRN (23:45)
[2019-05-24] MEDS: ACETAMINOPHEN 325 MG TABLET. PO PRN ×2 (00:03→20:49)
[2019-05-24] MEDS: IV RINGERS,LACTATED 1000ML 1,000 ML IV SCH ×3 (05:07→19:08)
[2019-05-24] MEDS ORDERED: OXYTOCIN 30 UNIT/500 ML PREMIX 500 ML IV PRN ×2 (06:00→10:45)
[2019-05-24] MEDS ORDERED: IV RINGERS,LACTATED 1000ML 1,000 ML IV SCH (09:14)
[2019-05-24] MEDS ORDERED: BUPIVACAINE MPF 0.25% 30 ML VIAL. EPID PRN (09:15)
[2019-05-24] MEDS ORDERED: ePHEDrine PF IN SALINE 50 MG/10 ML SYRINGE. IV PRN (09:15)
[2019-05-24] MEDS ORDERED: IV RINGERS,LACTATED 500ML 500 ML IV PRN (09:15)
[2019-05-24] MEDS ORDERED: PHENYLEPHRINE in 0.9% NACL PF 1 MG/10 ML SYRINGE. IV PRN (09:15)
[2019-05-24] MEDS ORDERED: NALOXONE 0.4 MG/ML VIAL. IV PRN (09:15)
[2019-05-24] MEDS ORDERED: fentaNYL PF VIAL 100 MCG/2 ML VIAL EPID PRN (09:15)
[2019-05-24] MEDS ORDERED: L&D EPIDURAL SYRINGE 50 ML EPID PRN (09:15)
[2019-05-24] MEDS ORDERED: diphenhydrAMINE 50 MG/ML VIAL IV PRN ×2 (09:15)
[2019-05-24] MEDS ORDERED: PROCHLORPERAZINE 10 MG/2 ML VIAL. IV PRN (09:15)
[2019-05-24] MEDS ORDERED: ROPIVacaine 0.2% PF 10 ML VIAL. EPID PRN (09:15)
[2019-05-24] MEDS ORDERED: ONDANSETRON PF 4 MG/2 ML VIAL. IVP PRN (09:15)
--- NOTE | 2019-05-24 09:30 | PDOC1 ---
OB - History Hx of Present Care: Good Care Ultrasounds: Normal mid trimester US Obstetrical Complications: None Medical Complications: None Past Family/Social History * Past Medical, Surgical, Family and Obstetric Histories reviewed from chart. Rubella: Immune RPR/VDRL: Negative GBS Status: Negative HBsAG: Negative OB - Chief Complaint & HPI Date of Admission: Date of Admission: May 23, 2019 at 18:57 Chief Complaint/History : 5 Para: 3 EGA: 39 Reason for admission: induction of labor Indication for induction: maternal discomfort, other (h/o demise due to cardiac malformation) Admission Nurse Assessment Rev: Yes OB - Admission Exam Physical Exam Vitals: VS - Last 72 Hours, by Label Date Time Temp Pulse Resp B/P (MAP) Pulse Ox O2 Delivery O2 Flow Rate FiO2 05/24/19 09:21 22 100 Room Air 05/23/19 21:08 97.8 79 18 120/72 (88) Room Air 97.8 HEENT: Normal Heart: Regular Rate Lungs: Clear, Equal Abdomen: Gravid, Non tender, Soft Extremities: Edema Reflexes: Normal Cervical Dilatation: 2cm Effacement: 75% Station: -3 Membranes: Intact Amniotic Fluid: Thin Meconium Heart Rate: Normal Accelerations: Accelerations Present Decelerations: No decelerations Contractions on Admission: None Text A: 39 wks IUP IOL P: Admit IOL cervidil, then pitocin. MARLEY ASCENCIO Jr, MD May 24, 2019 09:30
[2019-05-24] MEDS ORDERED: ROPIVacaine 0.2% PF 10 ML VIAL. ONE (10:00)
[2019-05-24] MEDS ORDERED: L&D EPIDURAL 50 ML SYRINGE. ONE (10:00)
[2019-05-24] MEDS ORDERED: SIMETHICONE 80 MG TAB.CHEW PO PRN (10:45)
[2019-05-24] MEDS ORDERED: ACETAMINOPHEN 325 MG TABLET. PO PRN (10:45)
[2019-05-24] MEDS ORDERED: BENZOCAINE 20% TOPICAL AEROSOL SPRAY 57GM CAN. TP PRN (10:45)
[2019-05-24] MEDS ORDERED: PHENYLEPH/MINERAL OIL/PETROLAT RECTAL OINTMENT TUBE. RC PRN (10:45)
[2019-05-24] MEDS ORDERED: ZOLPIDEM 5 MG TABLET. PO PRN (10:45)
[2019-05-24] MEDS ORDERED: 0.9 % SODIUM CHLORIDE 10 ML DISP.SYRIN. IV PRN (10:45)
[2019-05-24] MEDS ORDERED: TDaP (Adacel) per PROTOCOL. MC PRN (10:45)
[2019-05-24] MEDS ORDERED: HYDROCORTISONE 1% TOPICAL OINTMENT 30GM TUBE. TP PRN (10:45)
[2019-05-24] MEDS ORDERED: MAG HYDROX/ALUMINUM HYD/SIMETH 30 ML ORAL.SUSP PO PRN (10:45)
[2019-05-24] MEDS ORDERED: methylPREDNISolone SOD SUCC PF 125 MG/2 ML VIAL. IV ONE (10:45)
[2019-05-24] MEDS ORDERED: MMR per PROTOCOL. MC PRN (10:45)
[2019-05-24] MEDS ORDERED: MAGNESIUM HYDROXIDE 2,400 MG/30 ML ORAL.SUSP. PO PRN (10:45)
[2019-05-24] MEDS ORDERED: diphenhydrAMINE HCL 25 MG CAPSULE PO PRN (10:45)
--- NOTE | 2019-05-24 10:45 | PDOC ---
VAGINAL DELIVERY DATE DATE: 05/24/19 TIME: 10:44 : 5 Para: 4 EGA: 39 VAGINAL DELIVERY: VTX VACCUM ASSISTED: No PLACENTA: Spontaneous 8/9 SEX: Male WEIGHT Weight [ pending] Nuchal Cord: Yes, Times 1, Loose (and body cord loose) Amniotic Fluid: Clear PAIN: Epidural EPISIOTOMY: No EXTENSION: No EBL 300 ml COMPLICATIONS none CONDITION pt. stable Signs of Intrauterine Infectio: None Shoulder Dystocia: No MARLEY ASCENCIO Jr, MD May 24, 2019 10:45
[2019-05-24 14:16] VITALS: BP 118/76
[2019-05-24 18:24] VITALS: BP 105/61
[2019-05-24] MEDS: DOCUSATE SODIUM 100 MG CAPSULE. PO PRN (20:48)
[2019-05-24] MEDS: oxyCODONE/APAP 5/325 1 TAB TABLET PO PRN (20:58)
[2019-05-24 21:10] VITALS: BP 106/59
[2019-05-25 05:00] VITALS: BP 96/54
[2019-05-25 05:18] LABS: BASO # 0.1 x10^3/uL (0.0-0.2); BASO % 1 % (0-3); EOS % 0 % (0-3); HEMOGLOBIN 9.6 g/dL (12.0-15.5); LYMPH % 13 % (24-48); MEAN CORPUSCULAR HEMOGLOBIN 26 pg (25-35); MEAN CORPUSCULAR HGB CONC 32 g/dL (31-37); MEAN CORPUSCULAR VOLUME 80 fL (79-100); MONO # 0.9 x10^3/uL (0.0-1.1); MONO % 6 % (0-9); NEUT # 12.7 x10^3/uL (1.8-7.7); NEUT % 81 % (31-73); PLATELET COUNT 149 x10^3/uL (140-400); RED BLOOD COUNT 3.76 x10^6/uL (3.50-5.40); RED CELL DISTRIBUTION WIDTH 15.1 % (11.5-14.5); WHITE BLOOD COUNT 15.7 x10^3/uL (4.0-11.0)
[2019-05-25 06:59] LABS: % BANDS 4 % (0-9); % BASOS 1 % (0-3); % LYMPHS 7 % (24-48); % MONOS 1 % (0-10); % SEGS 87 % (35-66); PLT ESTIMATE ADEQUATE (ADEQUATE)
[2019-05-25] MEDS ORDERED: DIPH,PERTUSS(ACELL),TET VAC/PF 0.5 ML SYRINGE. VAX IM ONE (08:30)
[2019-05-25] MEDS ORDERED: FLU VAX QS 2019-20 (36MOS+)/PF 0.5 ML SYRINGE. VAX IM ONE (08:30)
[2019-05-25] MEDS ORDERED: MULTIVITAMIN with MINERAL TABLET. PO SCH (09:00)
[2019-05-25] MEDS: FERROUS SULFATE 325 MG TABLET. PO SCH ×2 (09:07→17:32)
[2019-05-25] MEDS: DOCUSATE SODIUM 100 MG CAPSULE. PO PRN ×2 (09:18→17:32)
[2019-05-25] MEDS: oxyCODONE/APAP 5/325 1 TAB TABLET PO PRN ×2 (11:26→17:32)
[2019-05-25 11:34] VITALS: BP 99/59
--- NOTE | 2019-05-25 17:04 | PDOC3 ---
OB DISCHARGE SUMMARY DATE OF ADMISSION: 05/23/19 DATE OF DISCHARGE: 05/25/19 REASON FOR ADMISSION: Induction of labor INTRAPARTUM PROCEDURES: Spontanous Vag Deliv DISCHARGE DIAGNOSIS: Term Delivered DISCHARGE INFORMATION: Activity (ad lety), Diet (regular), Instructions (pelvic rest x 6 wks) HOSPITAL COURSE Term gestation delivered vaginally without complications. MARLEY ASCENCIO Jr, MD May 25, 2019 17:04
[2019-05-25] MEDS ORDERED: HYDR-3164 PO (17:06)
--- NOTE | 2019-05-25 17:06 | DISCH ---
DISCHARGE INSTRUCTIONS Condition on Discharge Condition on Discharge: Stable Activity After Discharge Activity Instructions for Disc: Activity as tolerated Bathing Instructions: No Tub Bath until see Lifting Instructions after Dis: No heavy lifting, No pulling or pushing, Do not lift >10 pounds Exercise Instruction after Dis: Progress as tolerated Driving Instructions after Dis: Do not drive today Weight Bearing Status after Di: As tolerated Diet after Discharge Diet after Discharge: Regular Diet Texture: Regular Wound Incision Care Wound/Incision Care: No wound care needed Checks after Discharge Checks after discharge: Check your Temp as needed Contacting the DRDiana after DC Call your doctor for: Concerns you may have Follow-Up Follow up with: Dr. England in 6 wks Treatment/Equipment after DC Adaptive Equipment Issued: None MARLEY ENGLAND Jr, MD May 25, 2019 17:06
--- NOTE | 2019-05-25 17:35 | NUR ---
Discharge Discharge instructions given to patient at this time. No questions or concerns noted. To follow up with Dr England in 6 weeks
[2019-05-25 17:41] VITALS: BP 97/60
== END 2019-05-25 18:02 | disposition home or self-care (01) | DRG 807 ==
LOC: 3 SO LND 18:57 → 3 NORTH 05-24 13:40
PROVIDERS: ADMIT Obstetrics & Gynecology; ATTEND Obstetrics & Gynecology
PROC: 10E0XZZ Delivery of Products of Conception, External Approach (ICD-10-PCS; principal; 2019-05-24)
PROC: 3E0R3BZ Introduction of Anesthetic Agent into Spinal Canal, Percutaneous Approach (ICD-10-PCS; 2019-05-24)
PROC: 00HU33Z Insertion of Infusion Device into Spinal Canal, Percutaneous Approach (ICD-10-PCS; 2019-05-24)
DX: O77.0 Labor and delivery complicated by meconium in amniotic fluid (principal); Z37.0 Single live birth; O69.81X0 Labor and delivery complicated by cord around neck, without compression, not applicable or unspecified; Z3A.39 39 weeks gestation of pregnancy; Z88.6 Allergy status to analgesic agent
CPT/HCPCS: 36415; 81001; 85007; 85025; 86592; 86850; 86900; 86901; 87086; J2590; J2795; J2930; J3010; J7120; G0378; Q0163

== ENCOUNTER 2019-11-28 11:55 | Emergency (ER) | payer OTHER ==
[~2019-11-28] VITALS: Ht 162.6 cm; Wt 61.0 kg
[~2019-11-28 11:55] MED LIST changes: -PROC10VI PO; +PROC10VI20 PO
--- NOTE | 2019-11-28 12:19 | PHYS DOC ---
Past Medical History Past Medical History: Other Additional Past Medical Histor: Miscarriage Past Surgical History: No Surgical History Smoking Status: Never Smoker Alcohol Use: None Drug Use: None General Adult EDM: Chief Complaint: SYNCOPE HPI: HPI: History obtained from patient. Patient is a 34-year-old female with a history of Sjogren's disease who presents with chief complaint of syncope with head and back pain. Patient states approximately 10 hours prior to arrival she woke up in the night to go check on her son. She states that she became lightheaded and the next thing she remembers she was waking up in the bathroom floor. She notes that the toilet seat cover was broken. She notes she has had head and midline neck, thoracic, and lumbar pain since the fall. She has been able to ambulate. Did try 1000 mg of Tylenol 3 hours prior to arrival. States she has had previous episodes with extreme lightheadedness particular after waking up at night. Her family physician has seen her for this. States she is never passed out however. Denies any chest pain or shortness of breath prior to falling. Denies any headache prior to falling. Denies any feelings of irregular rapid heartbeat prior to falling. Denies any drug or alcohol abuse. States she does take a medicine daily for her Sjogren's disease but is not sure the name of it. Denies any family history of sudden cardiac . Any vertiginous symptoms. No other complaints. Review of Systems: Review of Systems: Constitutional: Denies fever or chills. [] Eyes: Denies change in visual acuity. [] HENT: Denies nasal congestion or sore throat. [] Respiratory: Denies cough or shortness of breath. [] Cardiovascular: Positive for lightheadedness and syncope GI: Denies abdominal pain, nausea, vomiting, bloody stools or diarrhea. [] : Denies dysuria. [] Musculoskeletal: Denies back pain or joint pain. [] Integument: Denies rash. [] Neurologic: Denies headache, focal weakness or sensory changes. [] Endocrine: Denies polyuria or polydipsia. [] Lymphatic: Denies swollen glands. [] Psychiatric: Denies depression or anxiety. [] Heart Score: Risk Factors: Risk Factors: DM, Current or recent (<one month) smoker, HTN, HLP, family history of CAD, obesity. Risk Scores: Score 0 - 3: 2.5% MACE over next 6 weeks - Discharge Home Score 4 - 6: 20.3% MACE over next 6 weeks - Admit for Clinical Observation Score 7 - 10: 72.7% MACE over next 6 weeks - Early Invasive Strategies Current Medications: Current Medications Medications (Trade) Dose Ordered Sig/Eladio Start Time Stop Time Status Last Admin Dose Admin Fentanyl Citrate (Fentanyl 2ml Vial) 50 mcg 1X ONCE 11/28/19 12:15 11/28/19 12:16 UNV Sodium Chloride 1,000 ml @ 1,000 mls/hr 1X ONCE 11/28/19 12:15 11/28/19 13:14 UNV Allergies: Allergies: Allergies Coded Allergies Type Severity Reaction Last Updated Verified ibuprofen Allergy Intermediate Rash 11/02/17 Yes Physical Exam: PE: Constitutional: Well developed, well nourished, no acute distress, non-toxic appearance. [] HENT: Normocephalic, atraumatic, bilateral external ears normal, oropharynx moist, no oral exudates, nose normal. [] Eyes: PERRLA, EOMI, conjunctiva normal, no discharge. [] Neck: Normal range of motion, no tenderness, supple, no stridor. [] Cardiovascular:Heart rate regular rhythm, no murmur [] Lungs & Thorax: Bilateral breath sounds clear to auscultation [] Abdomen: soft, no tenderness, no masses, no pulsatile masses. [] Skin: Warm, dry, no erythema, no rash. [] Back: Midline cervical, thoracic, and lumbar tenderness diffusely. No midline step-offs or deformities. Extremities: No tenderness, no cyanosis, no clubbing, ROM intact, no edema. [] Neurologic: Alert with intact cognitive function. No aphasia, dysarthria, or neglect. GCS 15. Pupils 3 mm briskly reactive b/l. No APD present. Cranial nerves 2-12 grossly intact; no facial asymmetry present, tongue midline, shoulder shrugging strength intact. Strength 5/5 and symmetric throughout. Light touch sensation intact throughout. Cerebellar testing appropriate without evidence of dysdiadochokinesia. DTR's 2+ in all 4 extremities. Negative pronator drift bilaterally. Gait normal Psychologic: Affect normal, judgement normal, mood normal. [] Current Patient Data: Labs: Laboratory Tests Test 11/28/19 12:26 11/28/19 12:30 Bedside Urine HCG, Qualitative Hcg negative White Blood Count 5.0 x10^3/uL Red Blood Count 4.49 x10^6/uL Hemoglobin 13.0 g/dL Hematocrit 39.0 % Mean Corpuscular Volume 87 fL Mean Corpuscular Hemoglobin 29 pg Mean Corpuscular Hemoglobin Concent 33 g/dL Red Cell Distribution Width 13.9 % Platelet Count 164 x10^3/uL Neutrophils (%) (Auto) 54 % Lymphocytes (%) (Auto) 36 % Monocytes (%) (Auto) 8 % Eosinophils (%) (Auto) 2 % Basophils (%) (Auto) 1 % Neutrophils # (Auto) 2.7 x10^3/uL Lymphocytes # (Auto) 1.8 x10^3/uL Monocytes # (Auto) 0.4 x10^3/uL Eosinophils # (Auto) 0.1 x10^3/uL Basophils # (Auto) 0.0 x10^3/uL Sodium Level 140 mmol/L Potassium Level 3.8 mmol/L Chloride Level 106 mmol/L Carbon Dioxide Level 24 mmol/L Anion Gap 10 Blood Urea Nitrogen 9 mg/dL Creatinine 0.9 mg/dL Estimated GFR (Cockcroft-Gault) 71.7 Glucose Level 95 mg/dL Calcium Level 9.1 mg/dL Troponin I Quantitative < 0.017 ng/mL Current Medications Medications (Trade) Dose Ordered Sig/Eladio Route PRN Reason Start Time Stop Time Status Last Admin Dose Admin Sodium Chloride 1,000 ml @ 1,000 mls/hr 1X ONCE IV 11/28/19 12:30 11/28/19 13:29 DC 11/28/19 12:45 Fentanyl Citrate (Fentanyl 2ml Vial) 50 mcg 1X ONCE IVP 11/28/19 12:30 11/28/19 12:31 DC 11/28/19 12:45 Ketorolac Tromethamine (Toradol 15mg Vial) 15 mg 1X ONCE IVP 11/28/19 13:30 11/28/19 13:31 DC Lidocaine (Lidoderm) 1 patch DAILY TD 11/28/19 13:30 Miscellaneous (Lidoderm Patch Removal) 1 ea QHS 11/28/19 21:00 Vital Signs: v Vital Signs Date Time Temp Pulse Resp B/P (MAP) Pulse Ox O2 Delivery O2 Flow Rate FiO2 10/11/20 12:00 98.1 78 20 126/72 (90) 99 Room Air 98.1 EKG: EKG: [] EKG consistent with normal sinus rhythm. Ventricular rate of 73 bpm. [place] normal. Intervals normal. No acute ischemic changes noted. Radiology/Procedures: Radiology/Procedures: [facility] [address] [place] [address] IMAGING REPORT Signed PATIENT: WILLIAMS WOODSON EACCOUNT: [id number] : 1985 LOCATION: ER AGE: 34 SEX: F EXAM STATUS: REG ER ORD. PHYSICIAN: LOURDES BANDA DO REASON: syncope PROCEDURE: CT HEAD AND CERVICAL SPINE WO CT HEAD AND CERVICAL SPINE WO Date: 11/28/2019 12:50 PM Clinical Indication: Reason: syncope / Spl. Instructions: / History: Comparison: None. Technique: 5 mm axial tomographic images were obtained of the head without contrast. These were viewed on brain and bone windows. CT imaging of the cervical spine was performed without contrast. Coronal and sagittal reformatted images were performed. One or more of the following dose reduction techniques were utilized: Automated exposure control (AEC), Adjustment of mA and/or kV according to patient size, Use of iterative reconstruction technique such as ASiR, CT scan done according to ALARA and image gently/image wisely HEAD FINDINGS: The brain parenchyma is normal in attenuation. No intra- or extra-axial mass or fluid collection. No acute hemorrhage. The ventricles are normal in size, shape, and morphology. The stewart-white matter junction is normal. The basilar cisterns are patent. Left maxillary sinus mucus retention cyst. The visualized portions of the orbits and globes are normal. The mastoid air cells are clear. No aggressive osseous lesion or fracture. CERVICAL SPINE FINDINGS: The cervical spine is normally aligned. No acute fracture. No aggressive lytic or blastic osseous lesion. The intervertebral disc heights are maintained. No high-grade spinal canal stenosis or neural foraminal narrowing. The thyroid gland is normal. No cervical lymphadenopathy. The visualized aerodigestive tract is unremarkable. The visualized lung apices are clear. IMPRESSION: 1. No acute intracranial process. 2. No acute osseous abnormality of the cervical spine. Electronically signed by: Isatu Elder MD (11/28/2019 1:23 PM) [id number] DICTATED and SIGNED BY: ISATU ELDER MD DATE: 11/28/19 1323 [facility] [address] [place] [address] IMAGING REPORT Signed PATIENT: WILLIAMS WOODSON EACCOUNT: [id number] : 1985 LOCATION: ER AGE: 34 SEX: F EXAM STATUS: REG ER ORD. PHYSICIAN: LOURDES BANDA DO REASON: low back pain s/p fall PROCEDURE: CT LUMBAR SPINE WO CONTRAST EXAM: Thoracic and lumbar spine CT without contrast. HISTORY: Fall. Pain. TECHNIQUE: Computed tomographic images of the thoracic and lumbar spine were obtained without contrast. Multiplanar reformatting was performed. *One or more of the following individualized dose reduction techniques were utilized for this examination: 1. Automated exposure control. 2. Adjustment of the mA and/or kV according to patient size. 3. Use of iterative reconstruction technique. COMPARISON: None. FINDINGS: Thoracic spine: There is mild chronic decreased vertebral body height at T7, T9 and T11. There are multiple thoracic endplate Schmorl's nodes and there is mild anterior endplate spurring at multiple thoracic levels. No acute fracture is seen. There is no suspicious lytic or sclerotic osseous lesion. There is no significant foraminal or central canal stenosis. Lumbar spine: There is no listhesis. The lumbar vertebral bodies are normal in height. There is mild endplate remodeling and there are few small endplate Schmorl's nodes. There is no fracture or suspicious osseous lesion. There is mild degenerative subchondral sclerosis involving the sacroiliac joints. There is vacuum phenomenon involving the sacroiliac joints. At L5-S1, there is a disc bulge and endplate remodeling. There is mild right and moderate left foraminal stenosis with abutment the exiting left L5 nerve root. IMPRESSION: 1. No acute osseous finding. 2. Mild chronic decreased vertebral body height at T7, T9 and T11 and multilevel thoracic and lumbar endplate remodeling and Schmorl's node formation. 3. Degenerative change at L5-S1, resulting in mild right and moderate left foraminal stenosis and abutment the exiting left L5 nerve root. Electronically signed by: Marcia Payan MD (11/28/2019 1:26 PM) [facility] DICTATED and SIGNED BY: MARCIA PAYAN MD DATE: 11/28/19 1326 [facility] [address] [place] [address] IMAGING REPORT Signed PATIENT: WILLIAMS WOODSON EACCOUNT: [id number] : 1985 LOCATION: ER AGE: 34 SEX: F EXAM STATUS: PRE ER ORD. PHYSICIAN: LOURDES BANDA DO REASON: syncope with FERREIRA and neck pain PROCEDURE: CHEST AP ONLY EXAM: Chest, single view. HISTORY: Syncope. Headache. COMPARISON: None. FINDINGS: A frontal view of the chest is obtained. There is no infiltrate, pleural effusion or pneumothorax. The heart is normal in size. IMPRESSION: No acute pulmonary finding. Electronically signed by: Marcia Payan MD (11/28/2019 12:44 PM) [facility] DICTATED and SIGNED BY: MARCIA PAYAN MD DATE: 11/28/19 1244 [] Course & Med Decision Making: Course & Med Decision Making Pertinent Labs and Imaging studies reviewed. (See chart for details) [] Patient is a very pleasant 34-year-old female presents with chief complaint of head and back pain status post syncopal event proximate 10 hours prior to arrival. Initial vital signs unremarkable. EKG without concerning changes. B asic labs were obtained and were grossly remarkable. Troponin negative. negative. CT imaging of the head and spine was obtained and was unremarkable. Chest x-ray nonacute. Patient does states she has a history of this and is followed with her primary care doctor for this. Patient does not endorse any red flag signs or features regarding her syncopal event. She is low risk Dover score. Overall do feel she is appropriate for discharge home. No traumatic findings identified. Pain was well controlled in the emergency department. She was instructed to follow-up with her primary care physician in the next 2 to 3 days. She was able to ambulate without difficulty in the emergency department and did tolerate p.o. Vital signs remained stable. Continues to deny any chest pain or associated shortness of breath. Return precautions discussed and understood. Stable for discharge home. Tani Disclaimer: Tani Disclaimer: This electronic medical record was generated, in whole or in part, using a voice recognition dictation system. Departure Departure Impression: Primary Impression: Syncope Qualified Codes: R55 - Syncope and collapse Additional Impression: Neck pain Disposition: 01 DC HOME SELF CARE/HOMELESS Condition: STABLE Referrals: SHAYY BALDERAS (PCP) Patient Instructions: Syncope Additional Instructions: Please follow-up your primary care physician in the next 2 to 3 days. LOURDES BANDA DO Nov 28, 2019 12:19
[2019-11-28] MEDS ORDERED: fentaNYL PF VIAL 100 MCG/2 ML VIAL IVP ONE (12:30)
[2019-11-28] MEDS ORDERED: IV NORMAL SALINE 1000ML BAG 1,000 ML IV ONE (12:30)
--- NOTE | 2019-11-28 12:47 | RAD ---
EXAM: Chest, single view. HISTORY: Syncope. Headache. COMPARISON: None. FINDINGS: A frontal view of the chest is obtained. There is no infiltrate, pleural effusion or pneumothorax. The heart is normal in size. IMPRESSION: No acute pulmonary finding. Electronically signed by: Marcia Sutton MD (11/28/2019 12:44 PM) [facility]
[2019-11-28 12:50] LABS: BASO % 1 % (0-3); EOS # 0.1 x10^3/uL (0.0-0.7); EOS % 2 % (0-3); LYMPH # 1.8 x10^3/uL (1.0-4.8); LYMPH % 36 % (24-48); MEAN CORPUSCULAR HEMOGLOBIN 29 pg (25-35); MEAN CORPUSCULAR HGB CONC 33 g/dL (31-37); MEAN CORPUSCULAR VOLUME 87 fL (79-100); MONO # 0.4 x10^3/uL (0.0-1.1); MONO % 8 % (0-9); NEUT # 2.7 x10^3/uL (1.8-7.7); NEUT % 54 % (31-73); PLATELET COUNT 164 x10^3/uL (140-400); RED BLOOD COUNT 4.49 x10^6/uL (3.50-5.40); RED CELL DISTRIBUTION WIDTH 13.9 % (11.5-14.5)
[2019-11-28 12:59] LABS: CALCIUM 9.1 mg/dL (8.5-10.1); CREATININE 0.9 mg/dL (0.6-1.0); GFR 71.7; POTASSIUM 3.8 mmol/L (3.5-5.1)
--- NOTE | 2019-11-28 13:26 | RAD ---
CT HEAD AND CERVICAL SPINE WO Date: 11/28/2019 12:50 PM Clinical Indication: Reason: syncope / Spl. Instructions: / History: Comparison: None. Technique: 5 mm axial tomographic images were obtained of the head without contrast. These were viewed on brain and bone windows. CT imaging of the cervical spine was performed without contrast. Coronal and sagittal reformatted images were performed. One or more of the following dose reduction techniques were utilized: Automated exposure control (AEC), Adjustment of mA and/or kV according to patient size, Use of iterative reconstruction technique such as ASiR, CT scan done according to ALARA and image gently/image wisely HEAD FINDINGS: The brain parenchyma is normal in attenuation. No intra- or extra-axial mass or fluid collection. No acute hemorrhage. The ventricles are normal in size, shape, and morphology. The stewart-white matter junction is normal. The basilar cisterns are patent. Left maxillary sinus mucus retention cyst. The visualized portions of the orbits and globes are normal. The mastoid air cells are clear. No aggressive osseous lesion or fracture. CERVICAL SPINE FINDINGS: The cervical spine is normally aligned. No acute fracture. No aggressive lytic or blastic osseous lesion. The intervertebral disc heights are maintained. No high-grade spinal canal stenosis or neural foraminal narrowing. The thyroid gland is normal. No cervical lymphadenopathy. The visualized aerodigestive tract is unremarkable. The visualized lung apices are clear. IMPRESSION: 1. No acute intracranial process. 2. No acute osseous abnormality of the cervical spine. Electronically signed by: Akira Elder MD (11/28/2019 1:23 PM) [id number]
--- NOTE | 2019-11-28 13:29 | RAD ---
EXAM: Thoracic and lumbar spine CT without contrast. HISTORY: Fall. Pain. TECHNIQUE: Computed tomographic images of the thoracic and lumbar spine were obtained without contrast. Multiplanar reformatting was performed. *One or more of the following individualized dose reduction techniques were utilized for this examination: 1. Automated exposure control. 2. Adjustment of the mA and/or kV according to patient size. 3. Use of iterative reconstruction technique. COMPARISON: None. FINDINGS: Thoracic spine: There is mild chronic decreased vertebral body height at T7, T9 and T11. There are multiple thoracic endplate Schmorl's nodes and there is mild anterior endplate spurring at multiple thoracic levels. No acute fracture is seen. There is no suspicious lytic or sclerotic osseous lesion. There is no significant foraminal or central canal stenosis. Lumbar spine: There is no listhesis. The lumbar vertebral bodies are normal in height. There is mild endplate remodeling and there are few small endplate Schmorl's nodes. There is no fracture or suspicious osseous lesion. There is mild degenerative subchondral sclerosis involving the sacroiliac joints. There is vacuum phenomenon involving the sacroiliac joints. At L5-S1, there is a disc bulge and endplate remodeling. There is mild right and moderate left foraminal stenosis with abutment the exiting left L5 nerve root. IMPRESSION: 1. No acute osseous finding. 2. Mild chronic decreased vertebral body height at T7, T9 and T11 and multilevel thoracic and lumbar endplate remodeling and Schmorl's node formation. 3. Degenerative change at L5-S1, resulting in mild right and moderate left foraminal stenosis and abutment the exiting left L5 nerve root. Electronically signed by: Marcia Sutton MD (11/28/2019 1:26 PM) [facility]
[2019-11-28] MEDS ORDERED: KETOROLAC 15 MG/ML VIAL. IVP ONE (13:30)
[2019-11-28] MEDS ORDERED: LIDOCAINE (700MG/PATCH) PATCH. TD SCH (13:30)
--- NOTE | 2019-11-28 14:27 | EKG ---
[facility] [address] [place] [address] Test Date: 2019-11-28 Test Time: 12:18:55 Pat Name: WILLIAMS WOODSON Department: Room: Gender: F [employer]: : 1985 Requested By: LOURDES BANDA Order Number: [id number] Reading MD: Gustabo Bacon MD Measurements Intervals Many Rate: 73 P: 70 NM: 126 QRS: 85 QRSD: 74 T: 34 QT: 374 QTc: 416 Interpretive Statements SINUS RHYTHM Electronically Signed On 11-29-2019 14:10:38 CDT by Gustabo Bacon MD
[2019-11-28 15:00] VITALS: BP 132/80
[2019-11-28] MEDS ORDERED: PATCH REMOVAL. MC SCH (21:00)
== END 2019-11-28 16:07 | disposition home or self-care (01) ==
LOC: ER 11:55
DX: R55 Syncope and collapse (principal); M54.2 Cervicalgia; M54.5 Low back pain; R51.9 Headache, unspecified; R42 Dizziness and giddiness; M35.00 Sjogren syndrome, unspecified; Z98.890 Other specified postprocedural states
CPT/HCPCS: 36415; 70450; 71045; 72125; 72128; 72131; 80048; 81025; 84484; 85025; 93005; 96361; 96374; 96375; 99285; J1885; J3010; J7030